=== PATIENT | male | born 1985 | race Caucasian/White ===

== ENCOUNTER 2018-11-18 11:11 | Emergency (ER) | payer SELFPAY ==
--- NOTE | 2018-11-18 12:48 | ER Document Report ---
ED Medical Screen (RME) - General Chief Complaint: Flank Pain Stated Complaint: URINARY PROBLEMS Time Seen by Provider: 11/18/18 12:41 Primary Care Provider: JAMSHID MARRUFO [Primary Care Provider] - Follow up as needed Mode of Arrival: Ambulatory Information source: Patient Notes: Patient is a 32-year-old male presenting to the emergency department with left flank pain that radiates around to his groin. He also reports a bulge in his groin area, he thinks it is a inguinal hernia. He has a history of an inguinal hernia repair to the right side. All of his pain is on the left. He also reports inability to urinate. He states last time he urinated was at 2230 last night. Patient declines a Negron catheter at this time. He states he will try to urinate for us. He denies any fever or chills. Exam: Tenderness to palpation to the left lower quadrant, full abdominal exam deferred until patient is in room. I have greeted and performed a rapid initial assessment of this patient. A comprehensive ED assessment and evaluation of the patient, analysis of test results and completion of the medical decision making process will be conducted by additional ED providers. I have specifically instructed the patient or family members with the patient to immediately return to any nursing staff should anything change in the patient's condition or with their chief complaint. This medical record was dictated with voice recognizing software. There may be grammatical, syntax errors that are unintended. - Related Data Allergies/Adverse Reactions: aspirin Allergy (Intermediate, Verified 11/18/18 11:14) Facial swelling Past Medical History - Social History Chew tobacco use (# tins/day): No Frequency of alcohol use: None Drug Abuse: Marijuana Physical Exam - Vital signs Vitals: Temp Pulse Resp BP Pulse Ox 98.9 F 74 16 143/86 H 100 11/18/18 11:16 11/18/18 11:16 11/18/18 11:16 11/18/18 11:16 11/18/18 11:16 Course - Vital Signs Vital signs: Temp Pulse Resp BP Pulse Ox 98.9 F 74 16 143/86 H 100 11/18/18 11:16 11/18/18 11:16 11/18/18 11:16 11/18/18 11:16 11/18/18 11:16 Doctor's Discharge - Discharge Referrals: LOCALMD,NO [Primary Care Provider] - Follow up as needed
[2018-11-18 13:50] LABS: ABSOLUTE BASOPHILS # (AUTO) 0.1 10^3/uL (0.0-0.2); ABSOLUTE EOSINOPHILS # (AUTO) 0.1 10^3/uL (0.0-0.6); ABSOLUTE LYMPHOCYTES (AUTO) 2.6 10^3/uL (0.5-4.7); ABSOLUTE MONOCYTES (AUTO) 0.9 10^3/uL (0.1-1.4); ABSOLUTE NEUT (AUTO) 7.8 10^3/uL (1.7-8.2); BASOPHILS % (AUTO) 0.7 % (0-2); EOSINOPHILS % (AUTO) 0.9 % (0-6); HEMATOCRIT 43.6 % (37.9-51.0); HEMOGLOBIN 15.1 g/dL (13.5-17.0); LYMPHOCYTES % (AUTO) 22.4 % (13-45); MEAN CORPUSCULAR HEMOGLOBIN 29.5 pg (27.0-33.4); MEAN CORPUSCULAR HGB CONC 34.6 g/dL (32.0-36.0); MEAN CORPUSCULAR VOLUME 85 fl (80-97); RED BLOOD COUNT 5.12 10^6/uL (4.35-5.55); TOTAL CELLS COUNTED % (AUTO) 100 %; WHITE BLOOD COUNT 11.5 10^3/uL (4.0-10.5)
[2018-11-18 14:13] LABS: ALBUMIN 4.3 g/dL (3.5-5.0); ALKALINE PHOSPHATASE 61 U/L (38-126); ANION GAP 6 (5-19); ASPARTATE AMINO TRANSFERASE 19 U/L (17-59); BILIRUBIN,TOTAL 0.9 mg/dL (0.2-1.3); BLOOD UREA NITROGEN 10 mg/dL (7-20); CALCIUM 9.6 mg/dL (8.4-10.2); CARBON DIOXIDE 32 mmol/L (22-30); CHLORIDE 102 mmol/L (98-107); GLUCOSE 93 mg/dL (75-110); POTASSIUM 3.8 mmol/L (3.6-5.0); TOTAL PROTEIN 7.3 g/dL (6.3-8.2)
[2018-11-18 14:24] LABS: PLATELET COUNT 87 10^3/uL (150-450)
[2018-11-18 14:32] LABS: APPEARANCE,URINE CLEAR; BILIRUBIN,URINE NEGATIVE (NEGATIVE); GLUCOSE, URINE NEGATIVE (NEGATIVE); KETONES,URINE NEGATIVE (NEGATIVE); LEUKOCYTE ESTERASE,URINE NEGATIVE (NEGATIVE); NITRITE,URINE POSITIVE (NEGATIVE); PROTEIN,URINE 100 mg/dL (NEGATIVE); URINE SPECIFIC GRAVITY 1.014
[2018-11-18 14:33] LABS: COLOR,URINE ORANGE
--- NOTE | 2018-11-18 16:20 | ER Document Report ---
ED GI/ - General Chief Complaint: Flank Pain Stated Complaint: URINARY PROBLEMS Time Seen by Provider: 11/18/18 12:41 Primary Care Provider: [facility] [Provider Group] - Follow up as needed [facility] [Provider Group] - Follow up as needed [facility] [Provider Group] - Follow up as needed Mode of Arrival: Ambulatory Notes: Patient is a 32-year-old male who presents to the emergency department with a chief complaint of left flank pain. Patient states the flank pain developed yesterday and was worse this morning. Patient states since being in the e mergency department he has had no pain in the past 30 minutes to an hour. Patient states he does not receive any pain medications. Patient states last night and earlier today he was having difficulty urinating and a feeling that he was unable to empty his bladder completely. Patient also reports pain with urination. Patient denies any obvious blood in the urine. Patient states that the left flank pain did wrap around into the left lower quadrant of his abdomen. Patient reports nausea without vomiting or diarrhea. Patient denies fever but does report chills. Patient denies penile discharge, testicular pain or swelling. - Related Data Allergies/Adverse Reactions: aspirin Allergy (Intermediate, Verified 11/18/18 11:14) Facial swelling Past Medical History - General Information source: Patient - Social History Smoking Status: Current Every Day Smoker Chew tobacco use (# tins/day): No Frequency of alcohol use: None Drug Abuse: Marijuana Lives with: Family Family History: None Patient has suicidal ideation: No Patient has homicidal ideation: No - Past Medical History Cardiac Medical History: Reports: None Pulmonary Medical History: Reports: None EENT Medical History: Reports: None Neurological Medical History: Reports: None Endocrine Medical History: Reports: None Renal/ Medical History: Reports: None Malignancy Medical History: Reports None GI Medical History: Reports: None Musculoskeletal Medical History: Reports None Skin Medical History: Reports None Psychiatric Medical History: Reports: None Traumatic Medical History: Reports: None Infectious Medical History: Reports: None Past Surgical History: Reports: None Review of Systems - Review of Systems Constitutional: See HPI EENT: No symptoms reported Cardiovascular: No symptoms reported Respiratory: No symptoms reported Gastrointestinal: See HPI Genitourinary: See HPI Male Genitourinary: No symptoms reported Musculoskeletal: No symptoms reported Skin: No symptoms reported Hematologic/Lymphatic: No symptoms reported Neurological/Psychological: No symptoms reported Physical Exam - Vital signs Vitals: Temp Pulse Resp BP Pulse Ox 98.9 F 74 16 143/86 H 100 11/18/18 11:16 11/18/18 11:16 11/18/18 11:16 11/18/18 11:16 11/18/18 11:16 Interpretation: Normal - Notes Notes: GENERAL: Well-appearing, well-nourished and in no acute distress. HEAD: Atraumatic, normocephalic. EYES: Pupils equal round and reactive to light, extraocular movements intact, s clera anicteric, conjunctiva are normal. ENT: Nares patent, oropharynx clear without exudates. Moist mucous membranes. NECK: Normal range of motion, supple without lymphadenopathy or JVD. LUNGS: Breath sounds clear to auscultation bilaterally and equal. No wheezes rales or rhonchi. HEART: Regular rate and rhythm without murmurs, rubs or gallops. ABDOMEN: Soft, very mild tenderness in llq, normoactive bowel sounds. No guarding, no rebound. No masses appreciated. BACK: No cervical, thoracic, lumbar midline tenderness. No saddle anesthesia, normal distal neurovascular exam. No CVA tenderness. GENITOURINARY: Deferred. EXTREMITIES: Normal range of motion, no pitting or edema. No clubbing or cyanosis. NEUROLOGICAL: Cranial nerves II through XII grossly intact. Normal speech, normal gait. PSYCH: Normal mood, normal affect. SKIN: Warm, Dry, normal turgor, no rashes or lesions noted. Course - Re-evaluation Re-evalutation: 11/18/18 16:22 Patient is an ultrasound. I will perform an inguinal exam as he did report to the nurse practitioner in triage he felt a bulge in his left inguinal area. When I did inquire the patient about any inguinal bulge or pain patient did deny. Will reassess when patient back in room. 11/18/18 17:17 Upon further assessment patient reports having a bulge to the left inguinal area that has been present for a few months. Patient reports that over the past few weeks the bulge did not reduce itself. Patient states he has not tried to reduce this himself. Upon physical examination I did palpate a left inguinal hernia. This was easily reducible with first attempt. I did explain to the patient in detail that this is something that needs to be fixed by surgery. I did inform the patient that if any time the hernia does bulge he needs to attempt to reduce it. I did inform him that if he was unable to reduce this, this is a medical emergency and he needs to return to the emergency department immediately. Patient reports he has had an inguinal hernia surgery with mesh on the right side in the past. Right inguinal area unremarkable without bulge or palpable hernia. 11/18/18 17:32 Patient reports as he did not stand up and walk around the hernia in the left inguinal area did pop back out, patient did easily reduce the hernia, I did re- evaluate and hernia not present. Also did ask the patient if he was concerned for STDs as a urinary tract infections are uncommon in men. He states he does not have any concern but would like to be tested. Patient reports that he is n ot having any testicular pain or swelling or penile discharge. 11/18/18 17:40 I did consult with Dr. Greenberg who states that this is not an acute emergent issue and would like the patient to follow-up with [facility] in the morning. I did inform the patient to rest tonight and if the hernia pops out do attempt to reduce this. If he is unable to reduce this he needs return to the emergency department immediately. I did leave a voicemail with Saul Mayorga who is our patient liaison here in the emergency department and can help the patient with possible follow-up care despite not having health insurance. I did inform the patient that he may receive a telephone phone call from her tomorrow. Patient given restrictions on heavy lifting greater than 10 pounds, strenuous activity and educated to hold the inguinal area when coughing until he follows up with [facility]. - Vital Signs Vital signs: Temp Pulse Resp BP Pulse Ox 97.8 F 69 16 119/77 100 11/18/18 18:07 11/18/18 18:07 11/18/18 11:16 11/18/18 18:07 11/18/18 18:07 - Laboratory Result Diagrams: 11/18/18 13:31 11/18/18 13:31 Laboratory results interpreted by me: 11/18/18 11/18/18 11/18/18 13:31 13:31 13:48 WBC 11.5 H Plt Count 87 L Carbon Dioxide 32 H Urine Protein 100 H Urine Blood LARGE H Urine Nitrite POSITIVE H Urine Urobilinogen 4.0 H Discharge - Discharge Clinical Impression: Left flank pain, Nausea, Dysuria Inguinal hernia Qualifiers: Obstruction and gangrene presence: without obstruction or gangrene Laterality: unilateral Recurrence: not specified as recurrent Qualified Code(s): K40.90 - Unilateral inguinal hernia, without obstruction or gangrene, not specified as recurrent Urinary tract infection Qualifiers: Urinary tract infection type: site unspecified Hematuria presence: with hematuria Qualified Code(s): N39.0 - Urinary tract infection, site not specified Condition: Stable Disposition: HOME, SELF-CARE Additional Instructions: Today you were seen in the emergency department for flank pain on the left side. The ultrasound did show a mild left hydronephrosis of the kidney but no obvious kidney stone or ureteral stone. Since your pain has improved it is likely that you have passed a stone. You do have a urinary tract infection which will be treated with oral antibiotics. Please take these antibiotics for its full course. Please take Tylenol ibuprofen as needed for pain or fever. Return to the emergency department if you have any vomiting, high fever, severe back pain, severe abdominal pain. Was also noted on the ultrasound and physical examination that you had a left inguinal hernia. You have stated this has been present and bulging for weeks. I was able to easily reduce the hernia. Reducing the hernia does put the bowel up back into the correct position. This ultimately does need to be fixed with surgery just like you had your right inguinal hernia repair. If the hernia does start to bulge again you need to attempt to reduce this. If you are unable to reduce the hernia you do need to report to the emergency department as this can be a medical emergency and you can lose part of your bowel if blood circulation is compromised. I did speak with our on-call surgeon Dr. Greenberg who would like you to follow-up with [facility] in the morning. I have contacted our manager social work Saul Mayorga who will be calling you tomorrow as she can help you with possible resources due to no insurance. Urinary Tract Infection Your evaluation indicates that you have a urinary tract infection. This is due to germs growing in the bladder. This is a common problem. This infection usually responds quickly to antibiotics. Your antibiotic should be taken exactly as prescribed. Drink plenty of fluids -- three to four quarts a day. Occasionally, a bladder anesthetic will be prescribed to help stop the feeling of urgency until the antibiotic has a chance to clear the infection. This may cause your urine to be dark orange. Certain urine infections require a culture. If the doctor obtained a culture, the results will be back in two days. You should call to see if a change in treatment is needed. A repeat urinalysis after you finish treatment is often recommended. The physician will let you know if further testing is required. Call the doctor if you develop fever, chills, flank pain, inability to urinate, or blood in the urine. Hernia You have a hernia. A hernia forms at a weak spot in the abdominal wall. Bowel slips out of the abdominal cavity into the weak spot. Hernias tend to occur in the groin (especially in males), the fold of the thigh, the naval, or at a surgical scar. Surgical repair of the defect is usually necessary. The problem tends to get worse. It's important that you follow up as recommended. For now, you should avoid straining, heavy lifting, and vigorous exercise. Complications occur if the hernia becomes tightly stuck. You should come back immediately if the area becomes increasingly painful, swollen, or discolored, or if you develop abdominal pain and vomiting. Prescriptions: Cephalexin Monohydrate [Keflex 500 mg Capsule] 500 mg PO BID 7 Days #14 capsule Forms: Return to Work Referrals: [facility] [Provider Group] - Follow up as needed [facility] [Provider Group] - Follow up as needed [facility] [Provider Group] - Follow up as needed
--- NOTE | 2018-11-18 17:02 | RADIOLOGY REPORT (SQ) ---
EXAM DESCRIPTION: U/S RETROPERITON LTD COMPLETED DATE/TIME: 11/18/2018 4:53 pm REASON FOR STUDY: left flank pain, hematuria, + UTI COMPARISON: None. TECHNIQUE: Dynamic and static grayscale images acquired of the kidneys and bladder and recorded on P ACS. Additional selected color Doppler and spectral images recorded. LIMITATIONS: None. FINDINGS: RIGHT KIDNEY: The right kidney measures 11.1 cm in length. Normal echogenicity. No so lid or suspicious masses. No hydronephrosis. No calcifications. LEFT KIDNEY: The left kidney measures 11.0 cm in length. Normal echogenicity. No solid or suspic ious masses. There is mild left-sided hydronephrosis. No calcifications. BLADDER: No masses. OTHER FINDINGS: No other significant finding. IMPRESSION: Mild left-sided hydronephrosis. COMMENT: The degree of renal pelvocalyceal dilation is correlated with the patient's current stage o f . TECHNICAL DOCUMENTATION: JOB ID: [id number] [employer]- All Rights Reserved Reading location - IP/workstation name: [email or web address]
--- NOTE | 2018-11-18 17:09 | RADIOLOGY REPORT (SQ) ---
EXAM DESCRIPTION: U/S NON-OB PELVIS LTD W/O DOP COMPLETED DATE/TIME: 11/18/2018 4:53 pm REASON FOR STUDY: eval for L inguinal hernia COMPARISON: None. TECHNIQUE: Dynamic and static grayscale images acquired of the localized site of clinical concern an d recorded on PACS. Additional selected color Doppler and spectral images recorded. SITE OF CONCERN: Left inguinal region LIMITATIONS: None. FINDINGS: SKIN AND SUBCUTANEOUS TISSUES: Left inguinal hernia is demonstrated containing peristalsin g bowel. DEEP SOFT TISSUES/MUSCLES: No masses. No fluid collections. No edema. VASCULAR: No increased or decreased vascularity. No occlusions. OTHER: No other significant finding. IMPRESSION: Palpable finding is consistent with inguinal hernia. TECHNICAL DOCUMENTATION: JOB ID: [id number] [employer]- All Rights Reserved Reading location - IP/workstation name: [email or web address]
[2018-11-18] MEDS ORDERED: CEPHALEXIN 500 MG CAPSULE PO ONE (17:43)
[2018-11-18 18:13] VITALS: BP 119/77
== END 2018-11-18 18:13 | disposition home or self-care (01) ==
LOC: ER 11:11
DX: K40.90 Unilateral inguinal hernia, without obstruction or gangrene, not specified as recurrent (principal); N39.0 Urinary tract infection, site not specified; R31.9 Hematuria, unspecified; R10.9 Unspecified abdominal pain; R10.32 Left lower quadrant pain; R10.814 Left lower quadrant abdominal tenderness; R11.0 Nausea; R30.0 Dysuria; R68.83 Chills (without fever); F17.200 Nicotine dependence, unspecified, uncomplicated; Z88.8 Allergy status to other drugs, medicaments and biological substances
CPT/HCPCS: 36415; 76775; 76857; 80053; 81001; 83690; 85025; 87086; 99284